=== PATIENT | female | born 1985 | race Caucasian/White ===

== ENCOUNTER 2016-06-20 11:10 | Emergency (ER) | payer OTHER ==
[~2016-06-20] VITALS: Ht 172.7 cm; Wt 57.0 kg
[~2016-06-20 11:10] MED LIST: ABIL15TA2 PO; ADDE30XR PO; BUPR150XL PO; KLON2TAB PO
[2016-06-20 11:43] VITALS: BP 130/83; PULSE 120; RESP 16; TEMP 98.8; O2SAT 99
--- NOTE | 2016-06-20 12:07 | PD ---
HPI Chief Complaint: Eye Problems/Injury Time Seen by Provider: 12:07 Travel History International Travel<30 days: No Contact w/Intl Traveler<30days: No Traveled to known affect area: No History of Present Illness HPI 30-year-old female coming in with right eye redness. Patient states he scratchy last evening. Patient states she does wear contacts, and she took them out last night when this became bothersome. She states the right eye has become more watering and red since that time. Patient denies crusting this morning. Patient states her vision is not affected patient states she may be allergic to Ceftin, but has never taken it. Her father was allergic to it. She denies any other symptoms or allergies. PFSH Past Medical History Asthma: Yes (dx as a child) Bipolar Disorder: Yes Anxiety: Yes Depression: Yes Cancer: No Cardiovascular Problems: No Diabetes: No Diminished Hearing: No Headaches: No Psychiatric: Yes (Depression, anxiety, history of Bipolar Disorder, possible eating disorder) Seizures: No Influenza Vaccination: No ?: Not LMP: DAYSEE BCP/IRREG : 0 Past Surgical History Tonsillectomy: Yes (2007) Social History Alcohol Use: Yes (pt states she drinks about 4x/w) Tobacco Use: Yes (04/27 ppd) Substance Use: Yes Allergies-Medications (Allergen,Severity, Reaction): Coded Allergies: Ceftin (Verified Allergy, Mild, 06/20/16) Reported Meds & Prescriptions Reported Meds & Active Scripts Active Wellbutrin Xl 24 HR (Bupropion HCl) 150 Mg Tab 150 Mg PO DAILY Abilify (Aripiprazole) 15 Mg Tab 15 Mg PO DAILY Adderall Xr 24 HR (Amphetamine/Dextroamphetamine) 30 Mg Cap 30 Mg PO DAILY Once daily in the morning. Physical Exam Narrative GENERAL: Patient appears in mild distress. SKIN: Warm and dry. Normal color. Normal turgor. No rash. HEAD: Atraumatic. Normocephalic. EYES: Pupils equal and round. No scleral icterus. Moderate generalized injection and clear tearing drainage from the right eye. Left eye is unremarkable. No obvious corneal abrasion noted. ENT: No nasal bleeding or discharge. Mucous membranes pink and moist. Pharynx is clear. NECK: Trachea midline. No JVD. CARDIOVASCULAR: Regular rate and rhythm. RESPIRATORY: No accessory muscle use. Clear to auscultation. Breath sounds equal bilaterally. MUSCULOSKELETAL: Extremities without clubbing, cyanosis, or edema. No obvious deformities. NEUROLOGICAL: Awake and alert. No obvious cranial nerve deficits. Motor grossly within normal limits. Five out of 5 muscle strength in the arms and legs. Normal speech. PSYCHIATRIC: Appropriate mood and affect; insight and judgment normal. Data Data Last Documented VS Vital Signs Date Time Temp Pulse Resp B/P Pulse Ox O2 Delivery O2 Flow Rate FiO2 06/20/16 11:43 98.8 120 16 130/83 99 MDM Medical Decision Making Medical Screen Exam Complete: Yes Emergency Medical Condition: Yes Differential Diagnosis Conjunctivitis. Contact lens injury. Corneal abrasion. Narrative Course Patient is medically stable at time of exam. Patient will be treated with Maxitrol ophthalmic drops every 3 hours while awake for the next 7 days. Patient is not to wear her contacts for at least 7 days. Patient is to start with a fresh pair of contacts. Patient is to follow-up with an overcoiler if symptoms do not improve or return to emergency Department with worsening symptoms as needed. Diagnosis Primary Impression: Conjunctivitis of right eye Qualified Code: H10.31 - Acute conjunctivitis of right eye, unspecified acute conjunctivitis type Additional Impression: Disorder due to contact lens Referrals: [employer] Patient Instructions: Conjunctivitis (ED), General Instructions Departure Forms: Work Release Enter return to work date: Jun 22, 2016 Additional Instructions: Patient will be treated with Maxitrol ophthalmic drops every 3 hours while awake for the next 7 days. Patient is not to wear her contacts for at least 7 days. Patient is to start with a fresh pair of contacts. Patient is to follow-up with an overcoiler if symptoms do not improve or return to emergency Department with worsening symptoms as needed. Med/Other Pt SpecificInfo: Prescription(s) given Disposition: 01 DISCHARGE HOME Condition: Stable Jason Medley Jun 20, 2016 12:07
[2016-06-20] MEDS ORDERED: MAXI5O EACH EYE (12:17)
[2016-07-31] MEDS ORDERED: ABIL15TA2 PO (13:55)
== END 2016-06-20 12:28 | disposition home or self-care (01) ==
LOC: PHEFT 11:10
DX: H10.31 Unspecified acute conjunctivitis, right eye (principal); F17.200 Nicotine dependence, unspecified, uncomplicated
CPT/HCPCS: 99282

== ENCOUNTER 2016-06-29 08:44 | Emergency (ER) | payer OTHER ==
[~2016-06-29] VITALS: Ht 172.7 cm; Wt 57.0 kg
[~2016-06-29 08:44] MED LIST changes: -KLON2TAB PO; +MAXI5O EACH EYE
[2016-06-29 08:49] VITALS: BP 110/74; PULSE 96; RESP 16; TEMP 98.9; O2SAT 96
[2016-06-29] MEDS ORDERED: LEVOTAB25 PO (09:11)
--- NOTE | 2016-06-29 09:14 | PD ---
HPI Chief Complaint: Complaint Time Seen by Provider: 09:03 Travel History International Travel<30 days: No Contact w/Intl Traveler<30days: No Traveled to known affect area: No History of Present Illness HPI The patient was seen and examined in the presence of the nurse. She complains of urinary frequency and urgency. She has history of multiple UTIs in the past and feels like she has another one. She denies fever or flank pain. Symptoms severity is mild to moderate. PFSH Past Medical History Asthma: Yes (dx as a child) Bipolar Disorder: Yes Anxiety: Yes Depression: Yes Cancer: No Cardiovascular Problems: No Diabetes: No Diminished Hearing: No Headaches: No Psychiatric: Yes (Depression, anxiety, history of Bipolar Disorder, possible eating disorder) Seizures: No Tetanus Vaccination: < 5 Years Influenza Vaccination: No ?: Not LMP: 2 MTH, NORMAL PER MEDICATION : 0 Past Surgical History Tonsillectomy: Yes (2007) Social History Alcohol Use: Yes (socially mix drinks, wine or beer) Tobacco Use: Yes (/2 ppd) Substance Use: No (hx of use) Allergies-Medications (Allergen,Severity, Reaction): Coded Allergies: Ceftin (Verified Allergy, Mild, 06/29/16) Reported Meds & Prescriptions Reported Meds & Active Scripts Active Wellbutrin Xl 24 HR (Bupropion HCl) 150 Mg Tab 150 Mg PO DAILY Abilify (Aripiprazole) 15 Mg Tab 15 Mg PO DAILY Adderall Xr 24 HR (Amphetamine/Dextroamphetamine) 30 Mg Cap 30 Mg PO DAILY Once daily in the morning. Reported Daysee (Levonorgestrel-Ethinyl Estradiol) 0.15-0.03-0.01 Mg Tab 1 Tab PO DAILY Review of Systems General / Constitutional: No: Fever HENT: No: Headaches Cardiovascular: No: Chest Pain or Discomfort Physical Exam Narrative GASTROINTESTINAL: Abdomen soft, non-tender, nondistended. Positive bowel sounds. No hepato-splenomegaly, or palpable masses. No guarding. SKIN: Inspection shows no rash or ulcers. Palpation shows no induration or nodules. Back: No CVA or midline tenderness Data Data Last Documented VS Vital Signs Date Time Temp Pulse Resp B/P Pulse Ox O2 Delivery O2 Flow Rate FiO2 06/29/16 09:01 16 06/29/16 08:49 98.9 96 110/74 96 Orders Urinalysis - C+S If Indicated (06/29/16 09:08) Urine Culture (06/29/16 09:00) Labs Laboratory Tests Test 06/29/16 09:00 Urine Collection Type CLEAN CATCH Urine Color ORANGE Urine Turbidity SLIGHT Urine pH 6.5 Urine Specific [place] 1.026 Urine Protein 30 mg/dL Urine Glucose (UA) 100 mg/dL Urine Ketones TRACE mg/dL Urine Occult Blood SMALL Urine Nitrite POS Urine Bilirubin NEG Urine Leukocyte Esterase MOD Urine RBC 15-19 /hpf Urine WBC 50-99 /hpf Urine Squamous Epithelial 6-8 /hpf Cells Urine Bacteria FEW /hpf Microscopic Urinalysis Comment CULTURE INDICATED Urine Collection Time 09:16 [facility] Medical Decision Making Medical Screen Exam Complete: Yes Emergency Medical Condition: Yes Medical Record Reviewed: Yes Differential Diagnosis UTI, cystitis, pyelonephritis Narrative Course I have reviewed the patient's electronic medical record. Has been here multiple times before for urinary tract infection Urinalysis today shows multiple markers of infection Bactrim DS prescribed Diagnosis Primary Impression: Acute cystitis Qualified Code: N30.00 - Acute cystitis without hematuria Additional Instructions: The patient was advised to follow up with their physician and return if they worsen. Med/Other Pt SpecificInfo: Prescription(s) given Scripts Sulfamethoxazole-Trimethoprim (Bactrim DS)800-160 Mg Tab1 Tab PO BID #10 TAB Ref 0 Prov:Lee Melo MD 06/29/16 Disposition: 01 DISCHARGE HOME Condition: Stable Lee Melo MD Jun 29, 2016 09:14
[2016-06-29 09:20] LABS: BLOOD, URINE SMALL (NEG); GLUCOSE,URINE 100 mg/dL (NEG); KETONE, URINE TRACE mg/dL (NEG); PH, URINE 6.5 (5.0-8.5)
[2016-06-29 09:24] LABS: NITRITE,URINE POS (NEG)
[2016-06-29 09:25] LABS: METHOD OF COLLECTION CLEAN CATCH; URINE COLOR ORANGE (YELLW/STRAW)
[2016-06-29 09:26] LABS: BACTERIA, URINE FEW /hpf; COMMENT (UR) CULTURE INDICATED; CULTURE IF INDICATED CULTURE INDICATED; RBC, URINE 15-19 /hpf (0-3)
[2016-06-29] MEDS ORDERED: BACT800T5 PO (09:38)
[2016-07-31] MEDS ORDERED: ABIL15TA2 PO (13:55)
== END 2016-06-29 10:02 | disposition home or self-care (01) ==
LOC: PHED 08:44
DX: N30.00 Acute cystitis without hematuria (principal); B96.89 Other specified bacterial agents as the cause of diseases classified elsewhere
CPT/HCPCS: 81001; 87086; 99283